=== PATIENT | female | born 1980 | race Caucasian/White ===

== ENCOUNTER 2021-12-10 13:08 | Outpatient (CLI) | payer BC | END 2021-12-10 13:09 | disposition home or self-care (01) | LOC: CSHRAD 13:08 | PROVIDERS: ATTEND Family Medicine | DX: R05.9 Cough, unspecified (principal) | CPT/HCPCS: 71046 ==

== ENCOUNTER 2023-10-23 15:03 | Outpatient (CLI) | payer BC | END 2023-10-23 15:04 | disposition home or self-care (01) | LOC: CSHMAMMO 15:03 | PROVIDERS: ATTEND Family Medicine | DX: Z12.31 Encounter for screening mammogram for malignant neoplasm of breast (principal) | CPT/HCPCS: 77063; 77067 ==

== ENCOUNTER 2023-10-27 09:33 | Outpatient (CLI) | payer BC | END 2023-10-27 09:34 | disposition home or self-care (01) | LOC: CSHULT 09:33 | PROVIDERS: ATTEND Family Medicine | DX: R92.8 Other abnormal and inconclusive findings on diagnostic imaging of breast (principal) ==